=== PATIENT | female | born 1950 | race Caucasian/White ===

== ENCOUNTER 2019-08-08 11:01 | Day surgery (SDC) | payer OTHER ==
[2019-08-05 14:17] VITALS: BMI 21.9
[2019-08-08] MEDS ORDERED: PROPOFOL 20 ML ONE ×5 (13:45→15:33)
[2019-08-08] MEDS ORDERED: MIDAZOLAM HCL 2 MG/2 ML SINGLE DOSE VIAL ONE (13:45)
[2019-08-08] MEDS ORDERED: SCOPOLAMINE HYDROBROMIDE 1 PATCH PATCH.TD72 ONE (13:57)
[2019-08-08] MEDS ORDERED: ceFAZolin SODIUM 1 GM VIAL ONE ×2 (14:41→15:48)
[2019-08-08] MEDS ORDERED: EPHEDRINE SULFATE/0.9% NACL/PF 50 MG/10 ML SYRINGE NR ONE (14:49)
[2019-08-08] MEDS ORDERED: KETOROLAC TROMETHAMINE 30 MG/1 ML VIAL ONE (16:00)
[2019-08-08] MEDS ORDERED: hydrALAZINE HCL 20 MG/ML VIAL ONE (16:10)
[2019-08-08] MEDS ORDERED: oxyCODONE HCL 5 MG TABLET PO PRN ×2 (16:59)
[2019-08-08] MEDS ORDERED: ONDANSETRON 4 MG/2 ML VIAL IVPUSH PRN (16:59)
[2019-08-08] MEDS ORDERED: LACTATED RINGERS SOLUTION 1,000 ML IV SCH (17:00)
[2019-08-08 18:00] VITALS: TEMP 98
[2019-08-08] MEDS ORDERED: oxyCODONE HCL 5 MG TABLET ONE (18:06)
[2019-08-08 18:47] VITALS: BP 101/50; PULSE 61
== END 2019-08-08 18:59 | disposition home or self-care (01) ==
LOC: FASU 11:01
PROVIDERS: ATTEND Orthopaedic Surgery
PROC: 0RBJ4ZZ Excision of Right Shoulder Joint, Percutaneous Endoscopic Approach (ICD-10-PCS; principal; 2019-08-08 12:30)
DX: M75.91 Shoulder lesion, unspecified, right shoulder (principal); M75.21 Bicipital tendinitis, right shoulder; M65.811 Other synovitis and tenosynovitis, right shoulder; M75.51 Bursitis of right shoulder
CPT/HCPCS: 94760